=== PATIENT | female | born 1955 | race Caucasian/White ===

== ENCOUNTER → 2016-11-04 | Outpatient (CLI) | payer OTHER ==
[~2016-11-04] MED LIST: ASPIRIN PO; ASPIRIN81 M2 PO; ATENOLOL PO; ATENOLOL50 MG PO; DICLOFENAC; LIPITOR; ROBAXIN500 MG; TENORMIN25 MG PO
--- NOTE | ~2016-11-04 | MY11 ---
[facility] A Service of [facility] [place] RADIOLOGY TEXT RESULTS PATIENT: ASUNCION ELENA LOCATION: [facility] : 53 UNIT #: [id number] AGE: [address]: Vilma Omalley MD SEX: F ORDER DR: [id number] [facility] [place], [place] [address] [id number] O MR#: [id number] Acc #: [id number] NAME: ASUNCION ELENA : 1955 SEX: F STUDY DATE/TIME: 11/04/2016 16:26 UNIT: [facility] ROOM: STUDY DESCRIPTION: MY Mammogram Screening Dig Eliazar Attending Physician: Vilma Omalley M.D. Referring Physician: Vilma Omalley M.D. Ordering Physician: Vilma Omalley M.D. Primary Care Physician: Vilma Omalley M.D. MEDICAL IMAGING REPORT This report is preliminary unless electronic signature is present EXAM Bilateral digital screening mammogram with CAD DATE 11/04/2016 HISTORY 61-year-old female with history of previous left breast biopsy. No documented personal history of breast cancer. Family history of breast cancer in a grandmother at the age of 60. COMPARISON Bilateral screening mammogram 10/31/2015, 10/27/2014, 10/08/2013. FINDINGS CC and MLO views were obtained of each breast utilizing digital technique and reviewed with an FDA-approved CAD device. Scattered fibroglandular densities within each breast are again noted. Focal fibroglandular density in the superior hemisphere right breast, [id number] third is unchanged from multiple prior studies and has undergone previous diagnostic evaluation. It is a stable finding. No new or suspicious nodule is seen. No nonsurgical architectural distortion is evident. No suspicious clustered microcalcifications. IMPRESSION BIRADS category 2. Benign findings. Routine bilateral screening mammogram is recommended in one year. Patients over the age of 40 are entered into a reminder system with target due date for the next mammogram. A result letter will also be sent to the patient. [facility] A Service of [facility] [place] RADIOLOGY TEXT RESULTS PATIENT: ASUNCION ELENA LOCATION: [facility] : 53 UNIT #: [id number] AGE: [address]: Vilma Omalley MD SEX: F ORDER DR: BIRADS: 2 Benign Finding Dictated by... Radha Gross M.D. THIS IS AN ELECTRONICALLY VERIFIED REPORT Radha Gross M.D. at 11/05/2016 7:09 AM [facility]/[place]olby TD: 11/04/2016 22:28 JOB #: [id number] MEDICAL IMAGING REPORT Page 1 of 1 COPY
== END | disposition home or self-care (01) ==
LOC: CWCC 16:17
DX: Z12.31 Encounter for screening mammogram for malignant neoplasm of breast (principal); Z80.3 Family history of malignant neoplasm of breast; Z98.890 Other specified postprocedural states
CPT/HCPCS: G0202

== ENCOUNTER → 2017-03-10 | Day surgery (SDC) | payer OTHER ==
--- NOTE | ~2017-03-10 | OR ---
Unit #: [id number] #: [id number] Patient: ASUNCION ELENA [id number] [address] [address] [id number] O MR#: [id number] NAME: ASUNCION ELENA ROOM: Date of Procedure: 03/10/2017 Admission Date: 03/10/2017 Surgeon: Faraz Ricci M.D. : 1955 Attending Physician: Faraz Ricci M.D. Referring Physician: Faraz Ricci M.D. Primary Care Physician: Vilma Omalley M.D. OPERATIVE REPORT PRIMARY CARE PHYSICIAN Vilma Omalley M.D. PREOPERATIVE DIAGNOSIS Colorectal cancer screening. The patient tells me that she had a last exam about 5 years ago, however, we do not have any record of that. PROCEDURES PERFORMED Colonoscopy up to cecum and terminal ileum with excellent preparation and good visualization. POSTOPERATIVE DIAGNOSES 1. Mild sigmoid and descending colon diverticulosis. 2. Small internal hemorrhoids. 3. Rest of the examination up to cecum was normal. The quality of the prep was excellent. No polyps were seen. RECOMMENDATIONS Repeat colonoscopy in 5 years. SEDATION USED MAC. DESCRIPTION OF PROCEDURE Following detailed explanation of the potential risks and complications of a colonoscopy, namely perforation, bleeding, and complication related to sedation, the patient was brought to GI lab and laid in the left lateral decubitus position. A digital rectal examination was performed, which was normal. Lubricated tip of the Olympus video colonoscope was inserted through the anus and advanced under direct vision. The scope was advanced and passed up to sigmoid into descending colon. Scant small diverticula were seen in this area. The scope tip was then navigated all the way up to cecum with visualization of the ileocecal valve and the appendiceal orifice. Preparation was excellent with good visualization and photodocumentation was obtained. Successive segments of the colonic mucosa were examined upon withdrawal and appeared unremarkable except for presence of scant diverticula on the left side. No polyps were seen. The patient did have small internal hemorrhoids seen at the anal verge. The scope was then withdrawn. The patient returned to the recovery area. She tolerated the procedure without any postprocedure complications. Unit #: [id number] #: [id number] Patient: ASUNCION ELENA Dictated by... Víctor Cantu/paula TD: 03/10/2017 12:51 JOB #: [id number] CC: Vilma Omalley M.D. OPERATIVE REPORT Page 1 of 1 X Faraz Ricci MD X PROCEDURE OPERATIVE NOTE
== END | disposition home or self-care (01) ==
LOC: COPS 11-01 11:00
DX: Z12.11 Encounter for screening for malignant neoplasm of colon (principal); K57.30 Diverticulosis of large intestine without perforation or abscess without bleeding; K64.8 Other hemorrhoids; F17.210 Nicotine dependence, cigarettes, uncomplicated; I10 Essential (primary) hypertension; E78.5 Hyperlipidemia, unspecified; J44.9 Chronic obstructive pulmonary disease, unspecified; Z80.0 Family history of malignant neoplasm of digestive organs; Z79.82 Long term (current) use of aspirin; Z79.899 Other long term (current) drug therapy; Z98.51 Tubal ligation status; Z98.890 Other specified postprocedural states
CPT/HCPCS: J2250